=== PATIENT | male | born 1970 | race Caucasian/White ===

== ENCOUNTER 2017-11-21 22:33 | Inpatient (IN) ==
[2017-11-21] MEDS ORDERED: Vancomycin Inj 1,500 MG in Sodium Chlor 0.9% Inj 500 ML IV.SIG ONE (23:20)
--- NOTE | 2017-11-21 23:45 | XR ---
EXAM DATE: 11/21/2017 11:00 PM EDT AGE/SEX: 47 years / Male INDICATIONS: Fever for 24 hours CLINICAL DATA: This is the patient's initial encounter. Patient reports that signs and symptoms have been present for 1 day and indicates a pain score of 0/10. MEDICAL/SURGICAL HISTORY: Cardiovascular disease. . Cardiac stent COMPARISON: . FINDINGS: The heart size is normal. There is increased density at the left base. The right lung is clear. No ef fusion is seen. CONCLUSION: Left lower lobe atelectasis or consolidation. Electronically signed by: Isai Alfonso MD 11/21/2017 11:44 PM EDT
[2017-11-21] MEDS: Sod Chloride 0.9% Inj 1,000 ML IV.SIG SCH (23:46)
[2017-11-21 23:49] LABS: Baso # (Auto) 0.1 th/mm3 (0.0-0.2); Baso % (Auto) 1.1 % (0.0-2.0); Eos # (Auto) 0.1 th/mm3 (0.0-0.4); Eos % (Auto) 1.6 % (0.0-4.0); Hematocrit 43.2 % (39.0-51.0); Hemoglobin 15.2 gm/dL (13.0-17.0); Lymph # (Auto) 3.2 th/mm3 (1.0-4.8); Lymph % (Auto) 34.3 % (9.0-44.0); Mean Corpuscular HGB Conc 35.2 % (32.0-36.0); Mean Corpuscular Hemoglobin 32.7 pg (27.0-34.0); Mean Corpuscular Volume 92.7 fL (80.0-100.0); Mean Platelet Volume 8.8 fL (7.0-11.0); Mono # (Auto) 0.4 th/mm3 (0.0-0.9); Mono % (Auto) 4.3 % (0.0-8.0); Neut # (Auto) 5.4 th/mm3 (1.8-7.7); Neut % (Auto) 58.7 % (16.0-70.0); Platelet Count 236 th/mm3 (150-450); Red Blood Count 4.65 mil/mm3 (4.50-5.90); Red Cell Distribution Width 14.2 % (11.6-17.2); White Blood Count 9.3 th/mm3 (4.0-11.0)
[2017-11-21 23:57] LABS: Chloride 109 meq/L (98-107); Potassium 3.6 meq/L (3.5-5.1); Sodium 144 meq/L (136-145)
[2017-11-22] LABS: Albumin 3.8 g/dL (3.4-5.0); Anion Gap 9 meq/L (5-15); Calcium 8.3 mg/dL (8.5-10.1); Carbon Dioxide 26.5 meq/L (21.0-32.0); Glucose,Random 133 mg/dL (74-106)
[2017-11-22 00:01] LABS: Blood Urea Nitrogen 13 mg/dL (7-18)
[2017-11-22 00:03] LABS: Alanine Aminotransferase 23 U/L (12-78)
[2017-11-22 00:04] LABS: Aspartate Aminotransferase 16 U/L (15-37); Glomerular Filtration Rate Greater Than 89 mL/min (>89)
[2017-11-22 00:06] LABS: Alkaline Phosphatase 99 U/L (45-117)
[2017-11-22] MEDS ORDERED: MethylPREDNISolone Sod Succinate Inj 125 MG/2 ML Vial IV.PUSH ONE (00:10)
[2017-11-22] MEDS ORDERED: MethylPREDNISolone Sod Succinate Inj 125 MG/2 ML Vial ONE (00:11)
[2017-11-22] MEDS ORDERED: Clindamycin 900 mg/NS Premix 900 MG/50 ML PIGGYBACK IV.SIG SCH (01:45)
[2017-11-22] MEDS ORDERED: SODIUM CHLOR 0.9% IV.SIG SCH ×2 (02:00→09:00)
[2017-11-22] MEDS ORDERED: RIFAMPIN IV.SIG SCH ×2 (02:00→09:00)
[2017-11-22] MEDS: Sod Chloride 0.9% Inj 1,000 ML IV.SIG SCH (02:25)
--- NOTE | 2017-11-22 02:48 | ED ---
HPI General Chief complaint: Extremity Problem,Nontraumatic Stated complaint: Lft Foot Swelling/Diabetic x2Wks Time Seen by Provider: 11/21/17 22:46 Source: patient Mode of arrival: ambulatory Limitations: no limitations History of Present Illness HPI narrative: Patient left [facility] 2-1/2 weeks ago. Patient was scheduled to go in for surgery for amputation secondary to osteomyelitis involving the dorsal foot on the left. Patient has chronic history of diabetes and has a total MP dictation on the right. Patient also has had amputations of the second and third toe on the left foot. Patient had problems in his family and refused the hospitalization in the [facility]. He comes here with increasing chills and significant pain and discomfort to left foot. Additionally he has had nausea and vomiting for the last 3 days and diarrhea for 1 day. He does have intermittent cramping abdominal pain.The primary reason for his presentation to the emergency department is because of increasing pain to his left lower extremity. Related Data Allergies Allergy/AdvReac Type Severity Reaction Status Date / Time ceftriaxone [From Rocephin] Allergy Hives Verified 11/21/17 22:48 tramadol Allergy Hives Verified 11/21/17 22:48 vancomycin Allergy Anaphylaxis Verified 11/22/17 01:09 Review of Systems ROS: all other systems reviewed are negative [facility] [place] Medical History Medical History Amputation at midfoot (Acute) CAD (coronary artery disease) (Acute) COPD (chronic obstructive pulmonary disease) (Acute) DVT (deep venous thrombosis) (Acute) Diabetes (Acute) Hypertension (Acute) Pancreatitis, chronic (Acute) Surgical History Surgical History History of mandibular surgery (Acute) Hx of cholecystectomy (Acute) Social History Social History Substance History: Active Abuse Smoking Status: Current every day smoker Tobacco Type: Cigarettes How Often Do You Have a Drink Containing Alcohol: Monthly or less Recent Travel in [facility] within the Last 8 Weeks: No Recent Out of Country Travel within the Last 8 Weeks: No Substance Abuse Detail Marijuana: Substance Use Status: Active Route Used Substance Abuse: Inhalation Reason for Use: Calm Down Immunization History Tetanus Immunization: <5 Years Hx Influenza Vaccine This Season: Yes Exam Narrative Exam Narrative: GENERAL: Alert and oriented with increasing pain to left lower extremity. Emesis on arrival SKIN: Focused skin assessment warm/dry. HEAD: Atraumatic. Normocephalic. EYES: Pupils equal and round. No scleral icterus. No injection or drainage. ENT: No nasal bleeding or discharge. Mucous membranes pink and moist. NECK: Trachea midline. No JVD. CARDIOVASCULAR: Regular rate and rhythm. No murmur appreciated. RESPIRATORY: No accessory muscle use. Clear to auscultation. Breath sounds equal bilaterally. Tussive rhonchi bilaterally with scattered wheezing GASTROINTESTINAL: Abdomen soft, non-tender, nondistended. Hepatic and splenic margins not palpable. No guarding or rigidity MUSCULOSKELETAL: Status amputation right forefoot. And second and third digits of left foot. Patient has generalized swelling and erythema to the forefoot on the left. No adenitis in popliteal or inguinal regions NEUROLOGICAL: Decreased sensation to distal lower extremities. Motor grossly within normal limits. Normal speech. PSYCHIATRIC: Appropriate mood and affect; insight and judgment normal. Course Reevaluation(s) Reevaluation #1: Patient received involved erythema and upper airway swelling and discomfort with significant pruritus after receiving antibiotic. Patient has symptoms consistent with acute allergic reaction to vancomycin and also with upper airway stridor consistent with angioedema. Patient treated with antihistaminics epinephrine and steroids. Time: 23:56 Reevaluation #2: Patient responding to treatment for allergic reaction and angioedema with reduction of symptomatology. Patient stable at present time Time: 01:02 Reevaluation #3: Patient only partially received vancomycin prior to allergic reaction to vancomycin. Patient given clindamycin. Time: 02:03 Initial Documented Vital Signs Temperature 98.5 F 11/21/17 22:38 Pulse Rate 85 11/21/17 22:38 Respiratory Rate 18 11/21/17 22:38 Blood Pressure 209/94 H 11/21/17 22:38 Pulse Oximetry 97 11/21/17 22:38 Last Documented Vital Signs Temperature 98.5 F 11/21/17 22:38 Pulse Rate 65 11/22/17 05:08 Respiratory Rate 18 11/22/17 05:08 Blood Pressure 138/75 11/22/17 05:08 Pulse Oximetry 98 11/22/17 05:08 Medical Decision Making MDM Narrative Medical decision making narrative: Patient presents with 2 problems #1 significant pain with diagnosis of osteomyelitis 2-1/2 weeks ago prior to moving back to [facility] from [facility]. At that time he was scheduled to have surgery with amputation secondary to what is said to be osteomyelitis. Patient has increasing pain and discomfort over the last week and had chills prior to arrival. #2 patient has nausea vomiting and diarrhea secondary to gastroenteritis. As it turns out patient does not have significant leukocytosis however needs to be evaluated with a MRI of the left foot to evaluate the diagnosis of osteomyelitis of that foot. Medical Screen Exam Complete: Yes Emergency Medical Condition: Yes Lab Data Result diagrams: 11/21/17 23:15 11/21/17 23:15 Lab Results 11/21/17 11/21/17 11/21/17 Range/Units 22:51 23:15 23:15 CBC w Diff Auto diff final WBC 9.3 (4.0-11.0) th/mm3 RBC 4.65 (4.50-5.90) mil/mm3 Hgb 15.2 (13.0-17.0) gm/dL Hct 43.2 (39.0-51.0) % MCV 92.7 (80.0-100.0) fL MCH 32.7 (27.0-34.0) pg MCHC 35.2 (32.0-36.0) % RDW 14.2 (11.6-17.2) % Plt Count 236 (150-450) th/mm3 MPV 8.8 (7.0-11.0) fL Neut % (Auto) 58.7 (16.0-70.0) % Lymph % (Auto) 34.3 (9.0-44.0) % Graham % (Auto) 4.3 (0.0-8.0) % Eos % (Auto) 1.6 (0.0-4.0) % Baso % (Auto) 1.1 (0.0-2.0) % Neut # (Auto) 5.4 (1.8-7.7) th/mm3 Lymph # (Auto) 3.2 (1.0-4.8) th/mm3 Graham # (Auto) 0.4 (0.0-0.9) th/mm3 Eos # (Auto) 0.1 (0.0-0.4) th/mm3 Baso # (Auto) 0.1 (0.0-0.2) th/mm3 WBC Differential . Differential Comment . Sodium 144 (136-145) meq/L Potassium 3.6 (3.5-5.1) meq/L Chloride 109 H (98-107) meq/L Carbon Dioxide 26.5 (21.0-32.0) meq/L Anion Gap 9 (5-15) meq/L BUN 13 (7-18) mg/dL Creatinine 0.75 (0.60-1.30) mg/dL Estimated GFR Greater than 89 (>89) mL/min POC Glucose 127 H (68-110) mg/dl Random Glucose 133 H (74-106) mg/dL Lactic Acid (0.4-2.0) mmol/L Calcium 8.3 L (8.5-10.1) mg/dL Total Bilirubin 0.6 (0.2-1.0) mg/dL AST 16 (15-37) U/L ALT 23 (12-78) U/L Alkaline Phosphatase 99 (45-117) U/L Total Protein 7.0 (6.4-8.2) g/dL Albumin 3.8 (3.4-5.0) g/dL Urine Color (Yellw/Straw) Urine Clarity (Clear) Urine pH (5.0-8.5) Ur Specific [place] (1.002-1.035) Urine Protein (Neg-Trace) mg/dL Urine Glucose (UA) (Negative) mg/dL Urine Ketones (Negative) mg/dL Urine Occult Blood (Negative) Urine Nitrate (Negative) Urine Bilirubin (Negative) Urine Urobilinogen (Less than 2) mg/dL Ur Leukocyte Esterase (Negative) 11/21/17 11/22/17 Range/Units 23:15 05:20 CBC w Diff WBC (4.0-11.0) th/mm3 RBC (4.50-5.90) mil/mm3 Hgb (13.0-17.0) gm/dL Hct (39.0-51.0) % MCV (80.0-100.0) fL MCH (27.0-34.0) pg MCHC (32.0-36.0) % RDW (11.6-17.2) % Plt Count (150-450) th/mm3 MPV (7.0-11.0) fL Neut % (Auto) (16.0-70.0) % Lymph % (Auto) (9.0-44.0) % Graham % (Auto) (0.0-8.0) % Eos % (Auto) (0.0-4.0) % Baso % (Auto) (0.0-2.0) % Neut # (Auto) (1.8-7.7) th/mm3 Lymph # (Auto) (1.0-4.8) th/mm3 Graham # (Auto) (0.0-0.9) th/mm3 Eos # (Auto) (0.0-0.4) th/mm3 Baso # (Auto) (0.0-0.2) th/mm3 WBC Differential Differential Comment Sodium (136-145) meq/L Potassium (3.5-5.1) meq/L Chloride (98-107) meq/L Carbon Dioxide (21.0-32.0) meq/L Anion Gap (5-15) meq/L BUN (7-18) mg/dL Creatinine (0.60-1.30) mg/dL Estimated GFR (>89) mL/min POC Glucose (68-110) mg/dl Random Glucose (74-106) mg/dL Lactic Acid 1.7 (0.4-2.0) mmol/L Calcium (8.5-10.1) mg/dL Total Bilirubin (0.2-1.0) mg/dL AST (15-37) U/L ALT (12-78) U/L Alkaline Phosphatase (45-117) U/L Total Protein (6.4-8.2) g/dL Albumin (3.4-5.0) g/dL Urine Color [place] H (Yellw/Straw) Urine Clarity Clear (Clear) Urine pH 6.0 (5.0-8.5) Ur Specific [place] Greater/equal 1.030 (1.002-1.035) Urine Protein Negative (Neg-Trace) mg/dL Urine Glucose (UA) 1000 or greater H (Negative) mg/dL Urine Ketones Trace H (Negative) mg/dL Urine Occult Blood Negative (Negative) Urine Nitrate Negative (Negative) Urine Bilirubin Negative (Negative) Urine Urobilinogen 0.2 (Less than 2) mg/dL Ur Leukocyte Esterase Negative (Negative) Imaging Data Radiologist's impression: Chest X-Ray 11/21/17 23:00 CONCLUSION: Left lower lobe atelectasis or consolidation. Discharge Plan Discharge Disposition Patient Disposition: 30 Still Patient Discharge Details Diagnosis: Cellulitis and abscess of foot, Gastroenteritis, Angioedema, Allergic reaction caused by a drug Physicians Team ED Provider: Quintin Angel Primary Care Provider: Primary Care Charlinei,No Discharge Interventions Interventions: Vital Signs Last Done: 11/22/17 05:08 Status ED Status: With Doctor
[2017-11-22] MEDS ORDERED: Ketorolac Inj 30 MG/ML (IVP) Vial IV.PUSH ONE (04:29)
[2017-11-22 05:09] VITALS: RESP 18
[2017-11-22 05:27] LABS: Bilirubin,Urine Negative (Negative); Clarity,Urine Clear (Clear); Leukocyte Esterase,Urine Negative (Negative); Nitrite,Urine Negative (Negative); Specific Gravity,Urine Greater/Equal 1.030 (1.002-1.035); Urobilinogen,Urine 0.2 mg/dL (Less than 2)
[2017-11-22 05:37] LABS: Color,Urine Orange (Yellw/Straw)
[2017-11-22] MEDS ORDERED: Bisacodyl 10 MG Supp RECTAL PRN (05:42)
[2017-11-22] MEDS ORDERED: Sod Chloride 0.9% Inj 1,000 ML IV.CONT SCH (05:45)
[2017-11-22 05:54] LABS: Squamous Epithelial Cell,Urine 0-5 /hpf (0-5)
--- NOTE | 2017-11-22 09:36 | ECG ---
Date Performed: 11/21/2017 Time Performed: 23:51:59 PTAGE: 47 years EKG: Baseline artifact present SUPRAVENTRICULAR RHYTHM POSSIBLE SEPTAL MYOCARDIAL INFARCTION ABN ORMAL ECG NO PREVIOUS TRACING DOCTOR: Kp Lim Interpretating Date/Time 11/22/2017 09:34:18
[2017-11-22] MEDS ORDERED: Dextrose 50% in Water 50 ML Vial IV.PUSH PRN (09:50)
[2017-11-22] MEDS ORDERED: Heparin 10,000 UNITS/10 ML Vial (for IV use) IV.PUSH STA (10:24)
[2017-11-22] MEDS ORDERED: Heparin Drip 25,000 UNIT/250 ML BAG IV.CONT PRN (10:24)
[2017-11-22] MEDS ORDERED: Lisinopril 10 MG Tablet PO SCH (10:30)
--- NOTE | 2017-11-22 10:46 | P.HP ---
History of Present Illness Primary Care Physician: No Primary Care Physician Chief Complaint: Left foot pain History of Present Illness: 47-year-old male with known history of hypertension, diabetes, hyperlipidemia, chronic pancreatitis, chronic obstructive pulmonary disease, hyperlipidemia, history of DVTs in the right lower extremity, who presented to hospital because of left foot pain. Patient has a rather extensive history of diabetic foot disorders requiring multiple amputations to include right transmetatarsal amputation, left foot with second and third digit amputations. Patient states that he has been undergoing management up in [place] for his infection/amputation. He indicates that he had a wound and his doctor in [place] said that it healing from the outside/in which was bad because he was having an infection into the bone. Patient was noncompliant with his management up in [place]. He was scheduled to have surgery but failed to show for the appointment. The patient had a fallout with his and he moved down to [place] roughly 3 weeks ago with his family. Patient has not followed up with any primary medical doctor for continued management or care. Patient is not taking any of his regular medications since coming to [place]. Patient has gone to an urgent care center for a abscess in his left armpit however did not have any follow-up for his left foot. The patient states that he was having significant pain in his left foot so he went to [facility]. He indicates that he could not pay the co-pay at that hospital in order to have treatment. Because of that reason he came to [place] for evaluation patient had workup done emergency department with laboratory studies which were unremarkable, patient was afebrile. Patient was given vancomycin in the emergency department with acute allergic reaction with what the patient states there was swelling of his face, lips, hives on his arms. Vancomycin was discontinued at that time and patient was given Solu-Medrol, Benadryl, epinephrine with improvement of his symptoms. It was recommended by the ER physician and the patient be observed in the hospital for further evaluation and management. - Diagnosis (1) Left foot pain (2) Angioedema (3) Allergic reaction caused by a drug Review of Systems All other systems reviewed negative except as stated in HPI Musculoskeletal: Reports other (Left foot pain) [facility] - History History Provided By: Patient - Medical History Medical History: Medical History (Last Updated 11/22/17 @ 10:31 by JOSIE Pappas) Amputation at midfoot CAD (coronary artery disease) COPD (chronic obstructive pulmonary disease) DVT (deep venous thrombosis) Diabetes Hyperlipidemia Hypertension Pancreatitis, chronic - Surgical History Surgical History: Surgical History (Last Updated 11/22/17 @ 10:34 by JOSIE Pappas) History of mandibular surgery History of transmetatarsal amputation of right foot Hx of cholecystectomy Status post amputation of lesser toe of left foot - Family History Family History: Family History (Last Updated 11/22/17 @ 10:35 by JOSIE Pappas) Mother History of hypertension History of heart disease - Tobacco History Second Hand Smoke Exposure: Yes Tobacco Use In Past 30 Days: Yes Smoking Status: Current every day smoker Tobacco Type: Cigarettes Packs Per Day: 1.5 Years Smoked: 32 - Alcohol History How Often Do You Have a Drink Containing Alcohol: Never - Substance Use History Substance History: Active Abuse - Substance Use Type Marijuana Status: Active Route Used: Inhalation Reason for Use: Calm Down - Travel History Recent Travel in the [place] Within the Last 8 Weeks: No Recent Travel Out of the Country Within the Last 8 Weeks: No - Immunization History Tetanus Immunization: <5 Years Hx Influenza Vaccine This Season: Yes Medications and Allergies Active Medications: Active Medications Hydrocodone Bitart/Acetaminophen ([place] 5/325) 1 tab PO Q6H PRN PRN Reason: PAIN SCALE 1 TO 5 Hydrocodone Bitart/Acetaminophen ([place] 7.5/325) 1 tab PO Q6H PRN PRN Reason: PAIN SCALE 6 TO 10 Al Hydroxide/Mg Hydroxide (Milk Of Jennifer Liq) 30 ml PO Q12H PRN PRN Reason: Mild Constipation Albuterol (Albuterol Neb (Prn)) 2.5 mg NEB Q15M PRN PRN Reason: ALLERGIES Last Admin: 11/22/17 00:23 Dose: 2.5 mg Bisacodyl (Dulcolax Supp) 10 mg RECTAL DAILY PRN PRN Reason: SEVERE CONSITIPATION Dextrose (D50w Vial) 50 ml IV.PUSH UNSCH PRN PRN Reason: PER HYPOGLYCEMIA PROTOCOL Glucagon (Glucagon Inj) 1 mg OTHER PRN PRN PRN Reason: for Hypoglycemia Protocol Heparin Sodium (Porcine) (Heparin Inj) 4,000 units IV.PUSH NOW STA Stop: 11/22/17 10:25 Heparin Sodium (Porcine) (Heparin Inj) 2,500 units IV.PUSH UNSCH PRN PRN Reason: aPTT 25-39 Heparin Sodium (Porcine) (Heparin Inj) 5,000 units IV.PUSH UNSCH PRN PRN Reason: aPTT < 25 Sodium Chloride (Ns Inj) 1,000 mls @ 0 mls/hr IV.SIG .Q0M [facility] Last Infusion: 11/22/17 03:30 Dose: Infused Clindamycin/Sodium Chloride (Cleocin 900 Mg/Ns Premix) 900 mg in 50 mls @ 100 mls/hr IV.SIG Q8H [facility] Last Infusion: 11/22/17 02:40 Dose: Infused Rifampin 600 mg/ Sodium (Chloride) 100 mls @ 100 mls/hr IV.SIG NOW [facility] Last Infusion: 11/22/17 04:03 Dose: Infused Sodium Chloride (Ns Inj) 1,000 mls @ 50 mls/hr IV.CONT .Q20H [facility] Last Infusion: 11/22/17 06:50 Dose: 50 mls/hr Heparin Sodium/Dextrose (Heparin/D5w 25,000 U/250 Ml) 25,000 unit in 250 mls @ 0 mls/hr IV.CONT TITRATE PRN; Protocol PRN Reason: Per Protocol Insulin Aspart (Novolog Insulin Correctional Sugar Inj) 0 unit SQ ACHS [facility]; Protocol Ketorolac Tromethamine (Toradol Inj) 30 mg IM Q6H PRN PRN Reason: BREAKTHROUGH PAIN Lactulose (Lactulose Liq) 30 ml PO DAILY PRN PRN Reason: SEVERE CONSITIPATION Lisinopril (Prinivil) 10 mg PO DAILY [facility] Sennosides (Senokot) 17.2 mg PO Q12H PRN PRN Reason: Moderate Constipation Allergies Allergy/AdvReac Type Severity Reaction Status Date / Time ceftriaxone [From Rocephin] Allergy Hives Verified 11/21/17 22:48 tramadol Allergy Hives Verified 11/21/17 22:48 vancomycin Allergy Anaphylaxis Verified 11/22/17 01:09 Exam Vital signs: Vital Signs 11/21/17 22:38 11/21/17 23:00 11/21/17 23:59 Temperature 98.5 F Pulse Rate 85 76 67 Respiratory Rate 18 20 Blood Pressure 209/94 H 151/90 H Pulse Oximetry 97 97 11/22/17 00:23 11/22/17 00:39 11/22/17 01:30 Temperature Pulse Rate 71 77 Respiratory Rate 20 20 Blood Pressure 150/70 H Pulse Oximetry 95 93 L 11/22/17 05:08 11/22/17 06:25 11/22/17 08:00 Temperature 97.2 F L Pulse Rate 65 57 L 59 L Respiratory Rate 18 18 18 Blood Pressure 138/75 138/77 133/70 Pulse Oximetry 98 97 96 Intake & Output 11/21/17 11/22/17 11/22/17 18:59 06:59 18:59 Intake Total 1949 Balance 1949 Weight 96.6 kg Intake: IV 1949 Cleocin 900 mg/NS Premix 900 mg 50 / 50 In 50 ml @ 100 mls/hr IV.SIG Q8H [facility] Rx#:[id number] NS Inj 1,000 ML @ Wide Open IV. 1800 / 1800 SIG .Q0M [facility] Rx#:[id number] Vancomycin Inj 1,500 MG In NS 0 / 0 Inj 500 ML @ 250 mls/hr IV.SIG ONCE ONE Rx#:[id number] RIFADIN Inj 600 MG In NS Inj 100 / 100 100 ML @ 100 mls/hr IV.SIG NOW [facility] Rx#:[id number] Narrative: GENERAL: Well-developed, well-nourished, in no acute distress. alert and orientated HEENT: Head is normocephalic without any lesions or masses noted. Facial features are symmetric. Eyes: Pupils equal round reactive to light. Extraocular muscles are intact. Conjunctivae were clear. Oropharyngeal: Pharynx without any erythema edema. Tongue is midline without deviation. Buccal mucosa is moist without any masses or lesions NECK: Supple without any masses. Trachea midline no deviation. No JVD, no bruits are appreciated CARDIAC: Regular rhythm, regular rate. S1/S2 are heard. No murmurs gallops or rubs. LUNGS: Clear to auscultation bilaterally. No wheeze, rhonchi or rales. No use of accessory muscles on inspiration or expiration. ABDOMEN: Soft, nontender. Nondistended. Bowel sounds heard in all 4 quadrants. No organomegaly or masses. Negative rebound, negative guarding EXTREMITIES: No edema, pulses are equal bilaterally. No cyanosis or clubbing. Patient does have transmetatarsal amputation of the right lower extremity. There is a avulsion of the skin noted on the lateral aspect of the bottom of his distal foot. Does not appeared to go full-thickness, no signs of infection or cellulitis NEUROLOGY: Mood and affect appear appropriate. Cranial nerves II through XII grossly intact. Muscle strength 5/5 in upper and lower extremities bilaterally. Deep tendon reflexes are 2+ in upper and lower extremities bilaterally. LEFT FOOT: Patient does have rather large MTP joint of the first digit. There is some mild erythema. There is no feeling on palpation. Patient appears to have no feeling distal to his midfoot. There does appear to be some ecchymosis noted on the lateral aspect of his foot just inferior to his ankle. No open wounds or exudates were appreciated Results - Labs CBC & Chem 7: 11/22/17 10:45 11/21/17 23:15 Labs: Laboratory Results - last 24 hr 11/21/17 11/21/17 11/21/17 22:51 23:15 23:15 CBC w Diff Auto diff final WBC 9.3 RBC 4.65 Hgb 15.2 Hct 43.2 MCV 92.7 MCH 32.7 MCHC 35.2 RDW 14.2 Plt Count 236 MPV 8.8 Neut % (Auto) 58.7 Lymph % (Auto) 34.3 [place] % (Auto) 4.3 Eos % (Auto) 1.6 Baso % (Auto) 1.1 Neut # (Auto) 5.4 Lymph # (Auto) 3.2 Band[place] # (Auto) 0.4 Eos # (Auto) 0.1 Baso # (Auto) 0.1 WBC Differential . Differential Comment . Sodium 144 Potassium 3.6 Chloride 109 H Carbon Dioxide 26.5 Anion Gap 9 BUN 13 Creatinine 0.75 Estimated GFR Greater than 89 POC Glucose 127 H Random Glucose 133 H Lactic Acid Calcium 8.3 L Total Bilirubin 0.6 AST 16 ALT 23 Alkaline Phosphatase 99 Total Protein 7.0 Albumin 3.8 Urine Color Urine Clarity Urine pH Ur Specific [place] Urine Protein Urine Glucose (UA) Urine Ketones Urine Occult Blood Urine Nitrate Urine Bilirubin Urine Urobilinogen Ur Leukocyte Esterase Ur Squamous Epith Cells Micro UA Comment Ur Microscopic Review Urine Culture Comments 11/21/17 11/22/17 11/22/17 23:15 05:20 07:27 CBC w Diff WBC RBC Hgb Hct MCV MCH MCHC RDW Plt Count MPV Neut % (Auto) Lymph % (Auto) [place] % (Auto) Eos % (Auto) Baso % (Auto) Neut # (Auto) Lymph # (Auto) [place] # (Auto) Eos # (Auto) Baso # (Auto) WBC Differential Differential Comment Sodium Potassium Chloride Carbon Dioxide Anion Gap BUN Creatinine Estimated GFR POC Glucose 259 H Random Glucose Lactic Acid 1.7 Calcium Total Bilirubin AST ALT Alkaline Phosphatase Total Protein Albumin Urine Color [place] H Urine Clarity Clear Urine pH 6.0 Ur Specific [place] Greater/equal 1.030 Urine Protein Negative Urine Glucose (UA) 1000 or greater H Urine Ketones Trace H Urine Occult Blood Negative Urine Nitrate Negative Urine Bilirubin Negative Urine Urobilinogen 0.2 Ur Leukocyte Esterase Negative Ur Squamous Epith Cells 0-5 Micro UA Comment Culture not ind Ur Microscopic Review Microscopic reviewed Urine Culture Comments Culture not ind - Imaging Impressions Chest X-Ray 11/21/17 23:00 CONCLUSION: Left lower lobe atelectasis or consolidation. Chest X-Ray 11/21/17 23:00 CONCLUSION: Left lower lobe atelectasis or consolidation. Foot MRI 11/22/17 00:00 CONCLUSION: 1. 6 mm x 5 cm fluid collection involving the dorsal aspect of the left foot with surrounding enhancement concerning for abscess. 2. Extensive cellulitic changes along the dorsal and medial aspect of the left foot with reactive marrow edema and enhancement within the first metatarsal and proximal aspect of the first proximal phalanx. This would be concerning for osteomyelitis. I do not see associated cortical disruption. There are advanced degenerative changes within the metatarsal phalangeal joint. 3. Previous amputations involving the second and third digits. Venous Doppler Study 11/22/17 00:00 CONCLUSION: No venous thrombosis is identified within either lower extremity. Caprini VTE Risk Assessment Caprini VTE Risk Assessment: Moderate/High Risk (score >= 2) Caprini Risk Assessment Model: Point Value = 1 Point Value = 2 Point Value = 3 Point Value = 5 Age 41-60 Minor surgery BMI > 25 kg/m2 Swollen legs Varicose veins or History of unexplained or recurrent spontaneous Oral contraceptives or hormone replacement Sepsis (< 1 month) Serious lung disease, including pneumonia (< 1 month) Abnormal pulmonary function Acute myocardial infarction Congestive heart failure (< 1 month) History of inflammatory bowel disease Medical patient at bed rest Age 61-74 Arthroscopic surgery Major open surgery (> 45 min) Laparoscopic surgery (> 45 min) Malignancy Confined to bed (> 72 hours) Immobilizing plaster cast Central venous access Age >= 75 History of VTE Family history of VTE Factor V Leiden Prothrombin [id number] Lupus anticoagulant Anticardiolipin antibodies Elevated serum homocysteine Heparin-induced thrombocytopenia Other congenital or acquired thrombophilia Stroke (< 1 month) Elective arthroplasty Hip, pelvis, or leg fracture Acute spinal cord injury (< 1 month) Prophylaxis Regimen: Total Risk Factor Score Risk Level Prophylaxis Regimen 0-1 Low Early ambulation 2 Moderate Order ONE of the following: *Sequential Compression Device (SCD) *Heparin 5000 units SQ BID 3-4 Higher Order ONE of the following medications: *Heparin 5000 units SQ TID *Enoxaparin/Lovenox 40 mg SQ daily (WT < 150 kg, CrCl > 30 mL/min) *Enoxaparin/Lovenox 30 mg SQ daily (WT < 150 kg, CrCl > 10-29 mL/min) *Enoxaparin/Lovenox 30 mg SQ BID (WT < 150 kg, CrCl > 30 mL/min) AND/OR *Sequential Compression Device (SCD) 5 or more Highest Order ONE of the following medications: *Heparin 5000 units SQ TID (Preferred with Epidurals) *Enoxaparin/Lovenox 40 mg SQ daily (WT < 150 kg, CrCl > 30 mL/min) *Enoxaparin/Lovenox 30 mg SQ daily (WT < 150 kg, CrCl > 10-29 mL/min) *Enoxaparin/Lovenox 30 mg SQ BID (WT < 150 kg, CrCl > 30 mL/min) AND *Sequential Compression Device (SCD) Assessment and Plan - Assessment (1) Left foot pain Code(s): M79.672 - Pain in left foot Status: Acute (2) Angioedema Code(s): T78.3XXA - Angioneurotic edema, initial encounter Status: Acute (3) Allergic reaction caused by a drug Code(s): T78.40XA - Allergy, unspecified, initial encounter Status: Acute - Plan Left foot pain -Patient does have subjective history of osteomyelitis that was to require transmetatarsal amputation, patient did not have procedure done due to noncompliance, family problems. Patient does not have any constitutional symptoms of sepsis. Patient is afebrile. There is no leukocytosis. Lactic acid level was normal -We will need to initiate workup to evaluate for osteomyelitis, need for surgical intervention -MRI of the foot does indicate significant 6 mm x 5 cm fluid collection, abscess with extensive cellulitic change and possible osteomyelitis. -Sed rate was normal, minimal elevation with C-reactive protein -Patient was given vancomycin emergency department with acute allergic reaction , requiring administration of Solu-Medrol, Benadryl, epinephrine. -Patient continued on clindamycin, rifampin -Podiatry was consulted who plans to take the patient to the OR tomorrow -Infectious disease have been consulted -We will need to obtain outside records from [place] -Pain management: When discussing with the patient what pain medications have been prescribed to him in the past that works for his pain he stated Dilaudid and morphine. I did review [facility] was indicated the patient was prescribed Lortab 11/11/17 by urgent care. We will continue Lortab for pain control with Toradol for breakthrough -The patient has been threatening to leave AGAINST MEDICAL ADVICE prior to MRI. He stated that he was going to wait to see if there is any abscess or osteomyelitis with the MRI and if there was he was going to stay for treatment and if there was not he was going to sign out AGAINST MEDICAL ADVICE. Patient was notified of the results in that he did have osteomyelitis and abscess. Patient did not care. He continued to sign out AGAINST MEDICAL ADVICE. Patient was notified that his condition is life-threatening that he may not survive if he is not treated appropriately. The patient did leave the hospital stating that he will go to a different hospital for treatment. History of multiple DVTs in the right lower extremity -Patient noncompliant with medications -Anticipate starting heparin IV per protocol, while awaiting ultrasound. Patient refusing heparin -Bilateral lower extremity ultrasound did not indicate any DVT Diabetes -Obtain hemoglobin A1c -Start Accu-Cheks with sliding scale insulin Hypertension -Start lisinopril 10 mg daily -Vasotec as needed Chronic obstructive pulmonary disease -Duo nebs as needed -Incentive spirometry Chronic tobacco use -Patient counseled on cessation -Start nicotine patch DVT prevention -Patient will be on heparin IV Discharge Planning: Patient left AGAINST MEDICAL ADVICE (2) Angioedema Qualifiers: Encounter type: initial encounter Qualified Code(s): T78.3XXA - Angioneurotic edema, initial encounter (3) Allergic reaction caused by a drug Qualifiers: Encounter type: initial encounter Qualified Code(s): T78.40XA - Allergy, unspecified, initial encounter
[2017-11-22 11:04] LABS: Hematocrit 43.4 % (39.0-51.0); Hemoglobin 14.5 gm/dL (13.0-17.0); Mean Corpuscular HGB Conc 33.4 % (32.0-36.0); Mean Corpuscular Volume 92.8 fL (80.0-100.0); Mean Platelet Volume 8.4 fL (7.0-11.0); Platelet Count 217 th/mm3 (150-450); Red Blood Count 4.68 mil/mm3 (4.50-5.90); Red Cell Distribution Width 14.1 % (11.6-17.2); White Blood Count 8.5 th/mm3 (4.0-11.0)
[2017-11-22 11:14] LABS: Activated Partial Thrombo Time 24.8 sec (24.3-30.1); Prothrombin Time 10.5 sec (9.8-11.6)
[2017-11-22] MEDS ORDERED: Insulin NovoLOG Aspart Correctional Sugar Inj SQ SCH (12:00)
--- NOTE | 2017-11-22 12:30 | US ---
EXAM DATE: 11/22/2017 12:00 AM EDT AGE/SEX: 47 years / Male INDICATIONS: Swelling. CLINICAL DATA: This is the patient's initial encounter. Patient reports that signs and symptoms have been present for 3 days and indicates a pain score of 1/10. MEDICAL/SURGICAL HISTORY: . Coronary artery disease. Chronic obstructive pulmonary disease. D iabetes. Deep vein thrombosis (multiple in right lower extremity). Hyperlipidemia. Hypertension. Pancreatitis, chronic. . Mandibular surgery. Transmetatarsal amputation of right foot. Amputation of lesser toe of left foot (second and third digit). Cholecystectomy. COMPARISON: No prior exams available for comparison. TECHNIQUE: Venous ultrasound of both lower extremities was performed from the inguinal ligament to t he proximal calf. Real-time, color Doppler and spectral tracing, compression and augmentation techni ques were used. FINDINGS: Right Leg: Normal compression of the deep venous system from the inguinal region to the proximal candido f. No echogenic clot is seen. Normal response of the venous system to augmentation and respiration. Left Leg: Normal compression of the deep venous system from the inguinal region to the proximal calf . No echogenic clot is seen. Normal response of the venous system to augmentation and respiration. Other: None. CONCLUSION: No venous thrombosis is identified within either lower extremity. Electronically signed by: Isai Sinha MD 11/22/2017 12:29 PM EDT
[2017-11-22 13:35] VITALS: BP 151/71; PULSE 60; TEMP 97; O2SAT 95
[2017-11-22] MEDS ORDERED: Gadobutrol PF 10 MMOL/10 ML Vial (for RAD) IV.SIG ONE (13:43)
--- NOTE | 2017-11-22 13:55 | MB ---
cc: Ilene Ortiz DPM DATE: 11/22/2017 CHIEF COMPLAINT: Left foot infection. HISTORY OF PRESENT ILLNESS: Mr. Broussard is a 47-year-old male patient with a complex foot history including multiple amputations. He states that his previous doctor in [place] was concerned that he may have osteomyelitis despite the lack of open wounds. He has scheduled him to be admitted into the hospital for further imaging. The patient originally told the intaking PA that he was scheduled to have surgery, but upon further questioning, he told me that he was only scheduled to have an MRI to see if he needed that surgery. The patient states that he had a falling out with his and moved from [place] to [place] recently. He went to [facility] in [facility] to be evaluated, but could not afford the copay and came to [facility] for further evaluation. He had a strong negative reaction to the vancomycin that was administered in the ER and was admitted for further evaluation. The patient states that he has a painful grinding sensation in the left foot, but denies any nausea, vomiting, fever, headache, or chills. PAST MEDICAL HISTORY: Includes coronary artery disease, chronic obstructive pulmonary disease, history of DVT, diabetes, hyperlipidemia, hypertension, chronic pancreatitis. PAST SURGICAL HISTORY: Includes mandibular surgery, right TMA cholecystectomy, and left foot 2nd and 3rd digit amputation. FAMILY HISTORY: Noncontributory. SOCIAL HISTORY: The patient is a pack and a half per day smoker for the last 32 years. Denies any alcohol or drug abuse, other than marijuana. Currently living with his mother in [facility]. PHYSICAL EXAMINATION: VITAL SIGNS: Temperature 97.2, which is also T-max, pulse rate 59, respiratory rate 18, blood pressure 133/70, pulse oximetry 96% O2 on room air. EXTREMITIES: The patient has a healed transmetatarsal amputation of the right foot that is unremarkable. Left foot has palpable DP and PT pulses. Capillary refill time less than 3 seconds. Gross sensation is diminished. Healed amputation to the 2nd and 3rd digits. There is severe lateral deviation of the hallux and mild edema around the 1st MPJ. There is questionable trace erythema to the MPJ as well. LABORATORY DATA: White count 8.5, hemoglobin 14.5, hematocrit 43.4, platelets 217. INR 1.0. Sodium 144, chloride 109, carbon dioxide 26.5, BUN 13, creatinine 0.75, glucose 133. Hemoglobin A1c pending. C-reactive protein 0.39. MRI is pending. ASSESSMENT AND PLAN: 1)Questionable subjective osteomyelitis of the 1st ray. -MRI pending. -If MRI is positive for osteomyelitis, we will discuss the patient's IV antibiotics versus amputation. If it is negative the patient is cleared to be discharged on p.o. antibiotics. -No wound care needed. No open wounds are noted at this time. Thank you for this consultation and allowing me to be involved in this patient's care. MYKE Navarro/shannan , 12:30 PM , 12:37 PM RENEE
--- NOTE | 2017-11-22 14:26 | MR ---
EXAM DATE: 11/22/2017 12:00 AM EDT AGE/SEX: 47 years / Male INDICATIONS: Osteomyelitis. CLINICAL DATA: This is the patient's initial encounter. Patient reports that signs and symptoms have been present for 1 day and indicates a pain score of 5/10. MEDICAL/SURGICAL HISTORY: Diabetes mellitus type II. . Several foot surgeries for amputations. COMPARISON: No prior exams available for comparison. TECHNIQUE: Multiplanar, multisequence MRI examination was performed without contrast and after th e intravenous administration of 10 ml Gadavist (gadobutrol) single exam dose. FINDINGS: Problems specific findings: The coronal T2-weighted images demonstrate marrow edema involving the fir st metatarsal and the proximal two thirds of the proximal phalanx of the first digit. There are degen erative changes across the first MTP joint. Following contrast administration there is contrast enhan cement within the first metatarsal as well as the proximal phalanx of the first digit. There are cell ulitic changes involving the dorsal and medial aspect of the left foot. In addition, the post contras t T1-weighted images demonstrate a fluid collection measuring approximately 6 mm in thickness by 5 cm in width along the dorsal aspect of the foot concerning for abscess. The marrow edema and enhancemen t within the first metatarsal and proximal phalanx of the first digit are concerning for osteomyeliti s. There has been previous resection of the second and third digits. The fourth and fifth digits are int act. No abnormal marrow signal is seen within these. CONCLUSION: 1. 6 mm x 5 cm fluid collection involving the dorsal aspect of the left foot with surrounding enhanc ement concerning for abscess. 2. Extensive cellulitic changes along the dorsal and medial aspect of the left foot with reactive ma rrow edema and enhancement within the first metatarsal and proximal aspect of the first proximal phal anx. This would be concerning for osteomyelitis. I do not see associated cortical disruption. There a re advanced degenerative changes within the metatarsal phalangeal joint. 3. Previous amputations involving the second and third digits. Electronically signed by: Justyn Ochoa MD 11/22/2017 2:24 PM EDT
[2017-11-22] MEDS ORDERED: Heparin 10,000 UNITS/10 ML Vial (for IV use) IV.PUSH PRN ×2 (16:25)
[2017-11-22] MEDS ORDERED: Heparin - SQ 10,000 UNITS/ML Vial SQ SCH (21:00)
== END 2017-11-22 14:50 | disposition left against medical advice (07) ==
LOC: PHED 22:33 → PHEDA 22:33 → OBSVTOIN 11-22 05:51 → PHEDA 11-22 06:50 → PH3 11-22 07:06
PROVIDERS: ADMIT Hospitalist; ATTEND Hospitalist